=== PATIENT | female | born 1950 | race Two or more races ===

== ENCOUNTER 2019-08-26 17:55 | Inpatient (IN) | payer MEDICAID, OTHER ==
[~2019-08-26] VITALS: Ht 152.4 cm; Wt 57.4 kg
[2019-08-26] MEDS ORDERED: InsuLIN REG 1unit/0.01ml Soln (100units/ml) SC ONE (19:30)
[2019-08-26] MEDS ORDERED: SODIUM CHLORIDE 0.9% 500 ML IV ONE (19:30)
[2019-08-26 19:32] LABS: INR 1.23 (0.9-1.15); Partial Thromboplastin Time 29.6 sec (23.64-32.05)
[2019-08-26 19:39] LABS: Alanine Aminotransferase 17 U/L (13-56); Albumin 3.2 g/dL (3.4-5.0); Anion Gap 9 (5-15); Aspartate Aminotransferase 23 U/L (15-37); BUN/Creatinine Ratio 9.2; Blood Urea Nitrogen 68 mg/dL (7-18); Calcium 8.5 mg/dL (8.5-10.1); Carbon Dioxide 29 mmol/L (21-32); Chloride 97 mmol/L (98-107); GFR African American 7 mL/min; GFR Non-African American 6 mL/min; Glucose 100 mg/dL (74-106); Magnesium 2.2 mg/dL (1.6-2.6); Potassium 5.4 mmol/L (3.5-5.1); Sodium 135 mmol/L (136-145)
[2019-08-26 19:43] LABS: Alkaline Phosphatase 50 U/L (45-117); Bilirubin, Total 0.7 mg/dL (0.2-1.0); Total Protein 7.5 g/dL (6.4-8.2)
[2019-08-26 19:48] LABS: Basophils # (auto) 0 10 ^3/uL (0-0.2); Basophils % (auto) 0.9 % (0.0-2.0); Eosinophils # (auto) 0.2 10 ^3/uL (0-0.8); Eosinophils % (auto) 3.1 % (0.0-7.0); Hematocrit 31.1 % (36.0-46.0); Hemoglobin 10.1 g/dL (12.2-16.2); Lymphocytes % (auto) 20.6 % (10.0-50.0); Mean Corpuscular Hemoglobin 29.4 pg (28.0-32.0); Mean Corpuscular Hgb Conc. 32.4 g/dL (32.0-36.0); Mean Corpuscular Volume 90.7 fL (80.0-100.0); Monocytes # (auto) 0.4 10 ^3/uL (0-1.3); Monocytes % (auto) 8.3 % (0.0-12.0); Neutrophils # (auto) 3.3 10 ^3/uL (1.6-8.6); Neutrophils % (auto) 67.1 % (37.0-80.0); Platelet Count (auto) 141 10^3/uL (140-450); Red Blood Cells 3.43 10^6/uL (4.0-5.20); Red Cell Distribution Width 14.5 % (11.8-14.3); White Blood Cell 4.9 10^3/uL (4.4-10.8)
[2019-08-26] MEDS ORDERED: VANCOMYCIN 1GM/250ML 250 ML IV ONE (20:30)
[2019-08-26] MEDS ORDERED: levoFLOXacin 250MG 50 ML IV ONE (20:30)
[2019-08-26] MEDS ORDERED: NITROGLYCERIN 0.4 MG SL TAB SL PRN ×2 (20:45→21:00)
[2019-08-26] MEDS ORDERED: VANCOMYCIN PER PHARMACY 0 MG IV SCH (20:45)
[2019-08-26] MEDS ORDERED: MORPHINE SULF INJ 2 MG/ML SYRINGE 1ML IV PRN ×3 (20:45→21:00)
[2019-08-26] MEDS ORDERED: DEXTROSE (50%) 50ML SYRG IV PRN (21:00)
[2019-08-26] MEDS ORDERED: METOCLOPRAMIDE HCL 5MG/ml INJ 2ml VIAL IV PRN (21:00)
[2019-08-26] MEDS ORDERED: DOCUSATE SOD 100 MG CAP PO PRN (21:00)
[2019-08-26] MEDS ORDERED: LORazepam 0.5 MG TAB PO PRN (21:00)
[2019-08-26] MEDS ORDERED: ALUM & MAG HYDROX-SIMETH LIQ(MAALOX) 30 ML PO PRN (21:00)
[2019-08-26] MEDS ORDERED: HYDROcodone-ACET 5/325MG TAB ONE (21:08)
[2019-08-26] MEDS ORDERED: InsuLIN REG 1unit/0.01ml Soln (100units/ml) IV ONE (21:15)
[2019-08-26] MEDS ORDERED: DEXTROSE (50%) 50ML SYRG IV ONE (21:15)
[2019-08-26] MEDS ORDERED: CALCIUM GLUC 4.65meq/50ml D5AE 50 ML IV ONE (21:15)
[2019-08-26] MEDS ORDERED: ALBUTEROL SULF 2.5 MG/0.5ML(0.5%) NEB SOLN NEB ONE (21:15)
[2019-08-26] MEDS ORDERED: SODIUM BICARBONATE 8.4% INJ 50ML SYRINGE IV ONE (21:15)
[2019-08-26] MEDS ORDERED: FUROSEMIDE 20 MG/2 ML VIAL IV ONE (21:15)
[2019-08-26] MEDS ORDERED: SODIUM ZIRCONIUM CYCL 10 GM PAK PO ONE (21:30)
[2019-08-26] MEDS: InsuLIN REG 1unit/0.01ml Soln (100units/ml) SC SCH (22:00)
[2019-08-26] MEDS ORDERED: CARVEDILOL 12.5 MG TAB PO SCH (22:00)
[2019-08-26] MEDS: hydrALAZINE HCL 25 MG TAB PO SCH (23:34)
[2019-08-26] MEDS: ATORVASTATIN 20 MG TAB PO SCH (23:38)
[2019-08-26] MEDS: HEPARIN SODIUM (PORCINE) 5000 UNITS/ML 1ML VIAL SC SCH (23:39)
[2019-08-26] MEDS: ACCU-CHEK COMFORT CURVE STRIP VI SCH (23:42)
[2019-08-27] MEDS ORDERED: SEVE800T8 PO (04:07)
[2019-08-27] MEDS ORDERED: DOXY100C2 PO (04:07)
[2019-08-27] MEDS ORDERED: FENO145T27 PO (04:07)
[2019-08-27] MEDS ORDERED: CARV3.1240 PO (04:07)
[2019-08-27] MEDS ORDERED: B-CO-6 OR (04:07)
[2019-08-27] MEDS ORDERED: AMLO5TAB15 PO (04:07)
[2019-08-27 05:09] VITALS: BP 102/54
[2019-08-27] MEDS: hydrALAZINE HCL 25 MG TAB PO SCH ×4 (06:00→21:57)
[2019-08-27 06:07] LABS: Basophils # (auto) 0 10 ^3/uL (0-0.2); Basophils % (auto) 0.7 % (0.0-2.0); Eosinophils # (auto) 0.1 10 ^3/uL (0-0.8); Eosinophils % (auto) 2.6 % (0.0-7.0); Lymphocytes # (auto) 0.8 10 ^3/uL (0.4-5.4); Lymphocytes % (auto) 21.1 % (10.0-50.0); Mean Corpuscular Hemoglobin 29.9 pg (28.0-32.0); Mean Corpuscular Hgb Conc. 33.2 g/dL (32.0-36.0); Mean Corpuscular Volume 90.2 fL (80.0-100.0); Monocytes # (auto) 0.2 10 ^3/uL (0-1.3); Monocytes % (auto) 6.4 % (0.0-12.0); Neutrophils # (auto) 2.6 10 ^3/uL (1.6-8.6); Neutrophils % (auto) 69.2 % (37.0-80.0); Platelet Count (auto) 124 10^3/uL (140-450); Red Blood Cells 3.33 10^6/uL (4.0-5.20); Red Cell Distribution Width 13.9 % (11.8-14.3); White Blood Cell 3.7 10^3/uL (4.4-10.8)
[2019-08-27 06:23] LABS: INR 1.32 (0.9-1.15); Partial Thromboplastin Time 34.4 sec (23.64-32.05)
[2019-08-27 06:29] LABS: Albumin 3.1 g/dL (3.4-5.0); Calcium 8.8 mg/dL (8.5-10.1); Magnesium 2.5 mg/dL (1.6-2.6); Potassium 5.3 mmol/L (3.5-5.1)
[2019-08-27 06:34] LABS: BUN/Creatinine Ratio 9.7; Bilirubin, Total 0.8 mg/dL (0.2-1.0); Phosphorus 6.3 mg/dL (2.5-4.90)
[2019-08-27] MEDS: InsuLIN REG 1unit/0.01ml Soln (100units/ml) SC SCH ×4 (07:00→21:58)
[2019-08-27] MEDS: ACCU-CHEK COMFORT CURVE STRIP VI SCH ×4 (07:09→21:57)
[2019-08-27 08:00] VITALS: BP 142/61
[2019-08-27] MEDS: SEVELAMER 800 MG TAB PO SCH ×3 (08:00→16:56)
[2019-08-27] MEDS ORDERED: SODIUM CHL 0.9% 1000 ML BAG XX ONE (08:30)
[2019-08-27 09:00] VITALS: BP 142/64
[2019-08-27] MEDS: HEPARIN SODIUM (PORCINE) 5000 UNITS/ML 1ML VIAL SC SCH ×2 (10:00→21:59)
[2019-08-27] MEDS ORDERED: CARVEDILOL 12.5 MG TAB PO SCH (10:00)
[2019-08-27] MEDS ORDERED: IOHEXOL 350 MG/ML 100ML IJ ONE (12:17)
[2019-08-27 13:00] VITALS: BP 129/61
[2019-08-27 13:42] LABS: Cholesterol 98 mg/dL (< 200); HDL Cholesterol 20 mg/dL (40-59); LDL Cholesterol 53 mg/dL (< 100); Triglycerides 135 mg/dL (< 150)
[2019-08-27] MEDS ORDERED: OPTISON 3ml Vial for INJ IV ONE (14:58)
[2019-08-27] MEDS ORDERED: VANCOMYCIN 500 MG in D5W 5% 100 ML IV ONE (16:00)
[2019-08-27] MEDS: MEROPENEM 500MG IVPB 50 ML IV SCH (16:56)
[2019-08-27 17:00] VITALS: BP 149/69
[2019-08-27] MEDS ORDERED: EPOETIN ALFA 4,000 UNIT/ML VL SC ONE (21:00)
[2019-08-27] MEDS: ATORVASTATIN 20 MG TAB PO SCH (21:57)
[2019-08-27 22:00] VITALS: BP 147/73
[2019-08-28] MEDS: HYDROcodone-ACET 5/325MG TAB PO PRN (03:13)
[2019-08-28 05:00] VITALS: BP 125/71
[2019-08-28] MEDS: hydrALAZINE HCL 25 MG TAB PO SCH ×3 (06:00→21:59)
[2019-08-28] MEDS: ACCU-CHEK COMFORT CURVE STRIP VI SCH ×4 (06:27→21:59)
[2019-08-28] MEDS: InsuLIN REG 1unit/0.01ml Soln (100units/ml) SC SCH ×4 (06:27→21:59)
[2019-08-28] MEDS: SEVELAMER 800 MG TAB PO SCH ×3 (08:00→18:08)
[2019-08-28 09:00] VITALS: BP 142/68
[2019-08-28] MEDS: MEROPENEM 500MG IVPB 50 ML IV SCH (10:20)
[2019-08-28] MEDS: HEPARIN SODIUM (PORCINE) 5000 UNITS/ML 1ML VIAL SC SCH ×2 (10:21→22:00)
[2019-08-28 13:00] VITALS: BP 151/61
[2019-08-28] MEDS: hydrALAZINE HCL 20 MG/ML VL IV PRN (13:22)
[2019-08-28 17:00] VITALS: BP 123/47
[2019-08-28] MEDS ORDERED: VANCOMYCIN 500 MG in D5W 5% 100 ML IV ONE (17:00)
[2019-08-28] MEDS ORDERED: EPOETIN ALFA 4,000 UNIT/ML VL SC ONE (21:00)
[2019-08-28] MEDS: ATORVASTATIN 20 MG TAB PO SCH (21:59)
[2019-08-28 22:40] VITALS: BP 165/68
[2019-08-29 05:00] VITALS: BP 156/62
[2019-08-29 05:21] LABS: Basophils # (auto) 0 10 ^3/uL (0-0.2); Eosinophils # (auto) 0.1 10 ^3/uL (0-0.8); Eosinophils % (auto) 2.8 % (0.0-7.0); Hematocrit 27.7 % (36.0-46.0); Hemoglobin 9.2 g/dL (12.2-16.2); Lymphocytes # (auto) 0.7 10 ^3/uL (0.4-5.4); Lymphocytes % (auto) 19.7 % (10.0-50.0); Mean Corpuscular Hemoglobin 30.1 pg (28.0-32.0); Mean Corpuscular Hgb Conc. 33.4 g/dL (32.0-36.0); Mean Corpuscular Volume 90.1 fL (80.0-100.0); Monocytes # (auto) 0.3 10 ^3/uL (0-1.3); Neutrophils # (auto) 2.2 10 ^3/uL (1.6-8.6); Neutrophils % (auto) 66.5 % (37.0-80.0); Platelet Count (auto) 104 10^3/uL (140-450); Red Blood Cells 3.08 10^6/uL (4.0-5.20); Red Cell Distribution Width 14.4 % (11.8-14.3); White Blood Cell 3.4 10^3/uL (4.4-10.8)
[2019-08-29 05:32] LABS: INR 1.24 (0.9-1.15)
[2019-08-29 05:34] LABS: BUN/Creatinine Ratio 7.8; Calcium 8.1 mg/dL (8.5-10.1); Potassium 4.5 mmol/L (3.5-5.1)
[2019-08-29] MEDS: ACCU-CHEK COMFORT CURVE STRIP VI SCH ×4 (06:12→21:45)
[2019-08-29] MEDS: InsuLIN REG 1unit/0.01ml Soln (100units/ml) SC SCH ×4 (06:12→21:45)
[2019-08-29] MEDS: hydrALAZINE HCL 25 MG TAB PO SCH ×3 (06:12→21:56)
[2019-08-29] MEDS: SEVELAMER 800 MG TAB PO SCH ×3 (08:20→17:40)
[2019-08-29 09:00] VITALS: BP 146/60
[2019-08-29] MEDS: HEPARIN SODIUM (PORCINE) 5000 UNITS/ML 1ML VIAL SC SCH ×2 (09:18→21:55)
[2019-08-29] MEDS: MEROPENEM 500MG IVPB 50 ML IV SCH (09:20)
[2019-08-29] MEDS: ACETAMINOPHEN 325 MG TAB PO PRN (11:45)
[2019-08-29] MEDS: hydrALAZINE HCL 20 MG/ML VL IV PRN (12:01)
[2019-08-29 13:00] VITALS: BP 157/67
[2019-08-29 17:00] VITALS: BP 145/76
[2019-08-29] MEDS: ATORVASTATIN 20 MG TAB PO SCH (21:56)
[2019-08-29 22:00] VITALS: BP 157/68
[2019-08-30 05:00] VITALS: BP 152/70
[2019-08-30] MEDS: hydrALAZINE HCL 25 MG TAB PO SCH ×3 (06:00→22:14)
[2019-08-30] MEDS: ACCU-CHEK COMFORT CURVE STRIP VI SCH ×2 (06:45→11:42)
[2019-08-30] MEDS: InsuLIN REG 1unit/0.01ml Soln (100units/ml) SC SCH ×4 (06:46→22:16)
[2019-08-30] MEDS ORDERED: SODIUM CHL 0.9% 1000 ML BAG XX ONE (07:00)
[2019-08-30 08:00] VITALS: BP 146/65
[2019-08-30] MEDS: SEVELAMER 800 MG TAB PO SCH ×3 (08:00→18:16)
[2019-08-30 09:00] VITALS: BP 146/65
[2019-08-30] MEDS: HEPARIN SODIUM (PORCINE) 5000 UNITS/ML 1ML VIAL SC SCH (10:00)
[2019-08-30] MEDS: MEROPENEM 500MG IVPB 50 ML IV SCH (10:00)
[2019-08-30 13:00] VITALS: BP 140/86
[2019-08-30 16:51] VITALS: BP 149/62
[2019-08-30 20:57] VITALS: BP 148/66
[2019-08-30] MEDS ORDERED: EPOETIN ALFA 4,000 UNIT/ML VL SC ONE (21:00)
[2019-08-30] MEDS: ATORVASTATIN 20 MG TAB PO SCH (22:14)
[2019-08-31 04:36] VITALS: BP 153/60
[2019-08-31] MEDS: hydrALAZINE HCL 25 MG TAB PO SCH ×3 (06:08→21:32)
[2019-08-31] MEDS: InsuLIN REG 1unit/0.01ml Soln (100units/ml) SC SCH ×4 (06:47→21:34)
[2019-08-31 08:00] VITALS: BP 141/67
[2019-08-31] MEDS: MEROPENEM 500MG IVPB 50 ML IV SCH (09:05)
[2019-08-31] MEDS: SEVELAMER 800 MG TAB PO SCH ×3 (09:05→18:46)
[2019-08-31 09:08] VITALS: BP 141/67
[2019-08-31] MEDS: HEPARIN SODIUM (PORCINE) 5000 UNITS/ML 1ML VIAL SC SCH ×2 (10:00→21:46)
[2019-08-31 13:00] VITALS: BP 158/68
[2019-08-31 16:56] VITALS: BP 152/74
[2019-08-31 21:05] VITALS: BP 155/68
[2019-08-31] MEDS: ATORVASTATIN 20 MG TAB PO SCH (21:32)
[2019-09-01 05:30] VITALS: BP 156/72
[2019-09-01] MEDS: InsuLIN REG 1unit/0.01ml Soln (100units/ml) SC SCH ×3 (06:41→17:00)
[2019-09-01] MEDS: hydrALAZINE HCL 25 MG TAB PO SCH ×3 (06:41→21:12)
[2019-09-01 08:06] VITALS: BP 114/65
[2019-09-01] MEDS: SEVELAMER 800 MG TAB PO SCH ×3 (08:07→17:44)
[2019-09-01 09:00] VITALS: BP 114/65
[2019-09-01] MEDS: MEROPENEM 500MG IVPB 50 ML IV SCH (10:33)
[2019-09-01 13:00] VITALS: BP 161/76
[2019-09-01 17:00] VITALS: BP 157/72
[2019-09-01] MEDS: ATORVASTATIN 20 MG TAB PO SCH (21:13)
[2019-09-01 22:21] VITALS: BP 158/74
[2019-09-02] MEDS: HYDROcodone-ACET 5/325MG TAB PO PRN ×3 (04:56→16:43)
[2019-09-02] MEDS: hydrALAZINE HCL 25 MG TAB PO SCH ×3 (04:56→21:08)
[2019-09-02] MEDS: hydrALAZINE HCL 20 MG/ML VL IV PRN (04:58)
[2019-09-02 05:30] VITALS: BP 159/54
[2019-09-02 05:53] LABS: Basophils # (auto) 0.1 10 ^3/uL (0-0.2); Eosinophils # (auto) 0.2 10 ^3/uL (0-0.8); Eosinophils % (auto) 3.2 % (0.0-7.0); Hematocrit 34.1 % (36.0-46.0); Hemoglobin 11.5 g/dL (12.2-16.2); Lymphocytes # (auto) 1.7 10 ^3/uL (0.4-5.4); Lymphocytes % (auto) 30.2 % (10.0-50.0); Mean Corpuscular Hemoglobin 29.9 pg (28.0-32.0); Mean Corpuscular Hgb Conc. 33.6 g/dL (32.0-36.0); Mean Corpuscular Volume 88.9 fL (80.0-100.0); Monocytes # (auto) 0.7 10 ^3/uL (0-1.3); Monocytes % (auto) 12.7 % (0.0-12.0); Neutrophils % (auto) 52.9 % (37.0-80.0); Nucleated Red Blood Cells % 0.1 %; Platelet Count (auto) 158 10^3/uL (140-450); Red Blood Cells 3.84 10^6/uL (4.0-5.20); Red Cell Distribution Width 13.7 % (11.8-14.3); White Blood Cell 5.6 10^3/uL (4.4-10.8)
[2019-09-02 06:10] LABS: INR 1.14 (0.9-1.15); Partial Thromboplastin Time 32.7 sec (23.64-32.05)
[2019-09-02 06:24] LABS: BUN/Creatinine Ratio 8.1; Calcium 8.7 mg/dL (8.5-10.1)
[2019-09-02] MEDS ORDERED: SODIUM CHL 0.9% 1000 ML BAG XX ONE (07:00)
[2019-09-02] MEDS: SEVELAMER 800 MG TAB PO SCH ×3 (08:00→18:38)
[2019-09-02] MEDS ORDERED: LIDOCAINE 2%HCL (LOCAL ANESTH.) INJ 20ML MDV ONE (08:19)
[2019-09-02] MEDS ORDERED: IOHEXOL 350 MG/ML 100ML IJ ONE (08:20)
[2019-09-02] MEDS ORDERED: MIDAZOLAM HCL 1MG/1ML-2 ML VIAL ONE (08:27)
[2019-09-02] MEDS ORDERED: ANGIOMAX 250 MG VIAL IV ONE (08:27)
[2019-09-02] MEDS ORDERED: fentaNYL CITRATE 100 MCG/2 ML VL ONE (08:27)
[2019-09-02] MEDS ORDERED: SODIUM CHL 0.9% 50 ML ONE (08:27)
[2019-09-02] MEDS ORDERED: IODIXANOL 320MG/ML 100ML BTL IV ONE ×2 (08:47→09:29)
[2019-09-02 12:05] VITALS: BP 154/65
[2019-09-02] MEDS: MEROPENEM 500MG IVPB 50 ML IV SCH (12:17)
[2019-09-02 13:00] VITALS: BP 115/70
[2019-09-02] MEDS ORDERED: CLOPIDOGREL BISULFATE 75 MG TAB PO ONE (16:00)
[2019-09-02 17:00] VITALS: BP 118/58
[2019-09-02] MEDS ORDERED: EPOETIN ALFA 4,000 UNIT/ML VL SC ONE (21:00)
[2019-09-02] MEDS: ATORVASTATIN 20 MG TAB PO SCH (21:08)
[2019-09-02 22:00] VITALS: BP 154/61
[2019-09-03] MEDS: HYDROcodone-ACET 5/325MG TAB PO PRN ×2 (00:44→04:48)
[2019-09-03 05:00] VITALS: BP 117/54
[2019-09-03] MEDS: hydrALAZINE HCL 25 MG TAB PO SCH ×3 (06:16→22:04)
[2019-09-03 06:23] LABS: Basophils # (auto) 0 10 ^3/uL (0-0.2); Basophils % (auto) 0.8 % (0.0-2.0); Eosinophils # (auto) 0.1 10 ^3/uL (0-0.8); Eosinophils % (auto) 2.2 % (0.0-7.0); Hematocrit 29.5 % (36.0-46.0); Hemoglobin 10.1 g/dL (12.2-16.2); Lymphocytes # (auto) 0.8 10 ^3/uL (0.4-5.4); Lymphocytes % (auto) 17.2 % (10.0-50.0); Mean Corpuscular Hemoglobin 30.3 pg (28.0-32.0); Mean Corpuscular Hgb Conc. 34.2 g/dL (32.0-36.0); Mean Corpuscular Volume 88.5 fL (80.0-100.0); Monocytes # (auto) 0.7 10 ^3/uL (0-1.3); Monocytes % (auto) 14.7 % (0.0-12.0); Neutrophils # (auto) 3.1 10 ^3/uL (1.6-8.6); Neutrophils % (auto) 65.1 % (37.0-80.0); Platelet Count (auto) 143 10^3/uL (140-450); Red Blood Cells 3.33 10^6/uL (4.0-5.20); Red Cell Distribution Width 13.9 % (11.8-14.3); White Blood Cell 4.7 10^3/uL (4.4-10.8)
[2019-09-03 06:39] LABS: Potassium 4.4 mmol/L (3.5-5.1)
[2019-09-03 06:56] LABS: BUN/Creatinine Ratio 5.5; Calcium 8.1 mg/dL (8.5-10.1)
[2019-09-03 08:00] VITALS: BP 134/58
[2019-09-03] MEDS: SEVELAMER 800 MG TAB PO SCH ×3 (08:53→18:17)
[2019-09-03 09:00] VITALS: BP 134/58
[2019-09-03] MEDS: MEROPENEM 500MG IVPB 50 ML IV SCH (09:06)
[2019-09-03] MEDS: ISOSORBIDE MONONITRATE ER 60 MG TAB PO SCH (09:08)
[2019-09-03] MEDS: CLOPIDOGREL BISULFATE 75 MG TAB PO SCH (09:08)
[2019-09-03 13:00] VITALS: BP 127/61
[2019-09-03 16:52] VITALS: BP 117/54
[2019-09-03 21:52] VITALS: BP 154/72
[2019-09-03] MEDS: ATORVASTATIN 20 MG TAB PO SCH (22:04)
[2019-09-04] VITALS (7 sets, daily range): BP systolic 124–169; BP diastolic 59–77
[2019-09-04] MEDS: hydrALAZINE HCL 20 MG/ML VL IV PRN (04:12)
[2019-09-04] MEDS: hydrALAZINE HCL 25 MG TAB PO SCH ×3 (05:38→21:27)
[2019-09-04] MEDS ORDERED: SODIUM CHL 0.9% 1000 ML BAG XX ONE (07:00)
[2019-09-04] MEDS: ISOSORBIDE MONONITRATE ER 60 MG TAB PO SCH (10:00)
[2019-09-04] MEDS: MEROPENEM 500MG IVPB 50 ML IV SCH (10:21)
[2019-09-04] MEDS: SEVELAMER 800 MG TAB PO SCH ×3 (10:21→18:29)
[2019-09-04] MEDS: CLOPIDOGREL BISULFATE 75 MG TAB PO SCH (10:22)
[2019-09-04] MEDS ORDERED: VANCOMYCIN 1GM/250ML 250 ML IV ONE (16:00)
[2019-09-04] MEDS ORDERED: EPOETIN ALFA 10,000 UNIT/1 ML VIAL SC ONE (21:00)
[2019-09-04] MEDS: ATORVASTATIN 20 MG TAB PO SCH (21:07)
[2019-09-05 04:42] VITALS: BP 160/70
[2019-09-05] MEDS: hydrALAZINE HCL 25 MG TAB PO SCH ×3 (05:50→22:07)
[2019-09-05] MEDS: hydrALAZINE HCL 20 MG/ML VL IV PRN (06:58)
[2019-09-05 08:00] VITALS: BP 148/78
[2019-09-05] MEDS: SEVELAMER 800 MG TAB PO SCH ×3 (08:32→17:54)
[2019-09-05 09:00] VITALS: BP 148/78
[2019-09-05] MEDS: MEROPENEM 500MG IVPB 50 ML IV SCH (09:38)
[2019-09-05] MEDS: ENOXAPARIN SOD 30 MG/0.3 ML SYRINGE SC SCH (09:38)
[2019-09-05] MEDS: CLOPIDOGREL BISULFATE 75 MG TAB PO SCH (09:39)
[2019-09-05] MEDS: ISOSORBIDE MONONITRATE ER 60 MG TAB PO SCH (09:40)
[2019-09-05 13:00] VITALS: BP 138/56
[2019-09-05 15:02] LABS: Hematocrit 29.2 % (36.0-46.0); Hemoglobin 9.9 g/dL (12.2-16.2)
[2019-09-05 16:33] VITALS: BP 128/58
[2019-09-05] MEDS: ATORVASTATIN 20 MG TAB PO SCH (22:06)
[2019-09-05 22:49] VITALS: BP 134/64
[2019-09-06 05:24] VITALS: BP 164/68
[2019-09-06] MEDS: hydrALAZINE HCL 25 MG TAB PO SCH ×3 (06:00→21:47)
[2019-09-06 06:12] LABS: Basophils # (auto) 0 10 ^3/uL (0-0.2); Basophils % (auto) 0.8 % (0.0-2.0); Eosinophils # (auto) 0.2 10 ^3/uL (0-0.8); Eosinophils % (auto) 3.2 % (0.0-7.0); Hematocrit 27.4 % (36.0-46.0); Hemoglobin 9.4 g/dL (12.2-16.2); Lymphocytes # (auto) 1.2 10 ^3/uL (0.4-5.4); Lymphocytes % (auto) 22.6 % (10.0-50.0); Mean Corpuscular Hemoglobin 30.2 pg (28.0-32.0); Mean Corpuscular Hgb Conc. 34.3 g/dL (32.0-36.0); Mean Corpuscular Volume 88.1 fL (80.0-100.0); Monocytes # (auto) 0.7 10 ^3/uL (0-1.3); Monocytes % (auto) 13.1 % (0.0-12.0); Neutrophils # (auto) 3.1 10 ^3/uL (1.6-8.6); Neutrophils % (auto) 60.3 % (37.0-80.0); Nucleated Red Blood Cells % 0.1 %; Platelet Count (auto) 157 10^3/uL (140-450); Red Blood Cells 3.11 10^6/uL (4.0-5.20); Red Cell Distribution Width 13.9 % (11.8-14.3); White Blood Cell 5.1 10^3/uL (4.4-10.8)
[2019-09-06 06:22] LABS: BUN/Creatinine Ratio 4.5; Calcium 7.9 mg/dL (8.5-10.1); Potassium 5.1 mmol/L (3.5-5.1)
[2019-09-06 06:59] LABS: INR 1.16 (0.9-1.15); Partial Thromboplastin Time 34.1 sec (23.64-32.05)
[2019-09-06] MEDS ORDERED: SODIUM CHL 0.9% 1000 ML BAG XX ONE (07:00)
[2019-09-06] MEDS: SEVELAMER 800 MG TAB PO SCH ×3 (07:44→17:43)
[2019-09-06 09:00] VITALS: BP 119/64
[2019-09-06] MEDS: CLOPIDOGREL BISULFATE 75 MG TAB PO SCH (10:00)
[2019-09-06] MEDS: ENOXAPARIN SOD 30 MG/0.3 ML SYRINGE SC SCH (10:00)
[2019-09-06 10:02] LABS: Hematocrit 29.2 % (36.0-46.0)
[2019-09-06] MEDS: MEROPENEM 500MG IVPB 50 ML IV SCH (10:54)
[2019-09-06] MEDS: ISOSORBIDE MONONITRATE ER 60 MG TAB PO SCH (10:57)
[2019-09-06 11:13] LABS: Calcium 7.7 mg/dL (8.5-10.1); Potassium 3.6 mmol/L (3.5-5.1)
[2019-09-06] MEDS ORDERED: BUPIVACAINE HCL 50 ML ONE (11:36)
[2019-09-06] MEDS ORDERED: MIDAZOLAM HCL 1MG/1ML-2 ML VIAL ONE ×3 (12:09→14:22)
[2019-09-06] MEDS ORDERED: LIDOCAINE 2% (LOCAL ANESTH.) PF 5ml SDV ONE (12:13)
[2019-09-06] MEDS ORDERED: PROPOFOL 10 MG/ML 20 ML IV ONE (12:13)
[2019-09-06] MEDS ORDERED: BUPIVACAINE 0.5% INJ 50ML VIAL IJ ONE (12:15)
[2019-09-06] MEDS ORDERED: METOCLOPRAMIDE HCL 5MG/ml INJ 2ml VIAL ONE (12:16)
[2019-09-06] MEDS ORDERED: diphenhdrAMINE HCL 50 MG/1 ML VL ONE (12:17)
[2019-09-06] MEDS ORDERED: fentaNYL CITRATE 100 MCG/2 ML VL ONE (12:19)
[2019-09-06] MEDS ORDERED: PHENYLEPHRINE HCL 10 MG/ML VL ONE (12:25)
[2019-09-06] MEDS ORDERED: ePHEDrine SULFATE 50 MG/ML AMP ONE (12:27)
[2019-09-06] MEDS ORDERED: SODIUM CHLORIDE LOCK 20 ML ONE (12:27)
[2019-09-06] MEDS ORDERED: ACCU-CHEK COMFORT CURVE STRIP VI ONE (13:45)
[2019-09-06] MEDS ORDERED: NALOXONE HCL 0.4 MG/ML VIAL IV PRN (13:45)
[2019-09-06] MEDS ORDERED: ONDANSETRON HCL 4 MG/2 ML VIAL IV PRN (13:45)
[2019-09-06] MEDS ORDERED: ePHEDrine SULFATE 50 MG/ML AMP IV PRN (13:45)
[2019-09-06] MEDS ORDERED: HYDROmorphone HCL 2 MG/ML VL IV PRN (13:45)
[2019-09-06 15:41] LABS: Hematocrit 29.5 % (36.0-46.0)
[2019-09-06] MEDS ORDERED: VANCOMYCIN 500 MG in D5W 5% 100 ML IV ONE (16:00)
[2019-09-06] MEDS: MORPHINE SULF INJ 2 MG/ML SYRINGE 1ML IV PRN ×2 (16:42→23:41)
[2019-09-06 17:00] VITALS: BP 106/60
[2019-09-06] MEDS ORDERED: EPOETIN ALFA 4,000 UNIT/ML VL SC ONE (21:00)
[2019-09-06] MEDS: HYDROcodone-ACET 5/325MG TAB PO PRN (21:46)
[2019-09-06] MEDS: ATORVASTATIN 20 MG TAB PO SCH (21:47)
[2019-09-06 22:00] VITALS: BP 122/65
[2019-09-07 05:00] VITALS: BP 139/72
[2019-09-07] MEDS: hydrALAZINE HCL 25 MG TAB PO SCH ×3 (06:55→21:21)
[2019-09-07] MEDS: MORPHINE SULF INJ 2 MG/ML SYRINGE 1ML IV PRN ×9 (06:56→19:56)
[2019-09-07] MEDS: SEVELAMER 800 MG TAB PO SCH ×3 (07:52→17:57)
[2019-09-07 08:57] LABS: Hemoglobin 10.2 g/dL (12.2-16.2)
[2019-09-07 09:00] VITALS: BP 151/75
[2019-09-07] MEDS: MEROPENEM 500MG IVPB 50 ML IV SCH (09:54)
[2019-09-07] MEDS: ISOSORBIDE MONONITRATE ER 60 MG TAB PO SCH (09:55)
[2019-09-07] MEDS: ENOXAPARIN SOD 30 MG/0.3 ML SYRINGE SC SCH (10:00)
[2019-09-07] MEDS: CLOPIDOGREL BISULFATE 75 MG TAB PO SCH (10:00)
[2019-09-07 17:00] VITALS: BP_SYST 141; BP_SYST 148; BP_DIAS 64; BP_DIAS 77
[2019-09-07 20:36] VITALS: BP 147/76
[2019-09-07] MEDS: ACETAMINOPHEN 325 MG TAB PO PRN (20:59)
[2019-09-07] MEDS ORDERED: HYDROcodone-ACET 7.5/325MG TAB PO PRN (21:15)
[2019-09-07] MEDS: ATORVASTATIN 20 MG TAB PO SCH (21:21)
[2019-09-08] MEDS: ACETAMINOPHEN 325 MG TAB PO PRN (00:36)
[2019-09-08] MEDS: MORPHINE SULF INJ 2 MG/ML SYRINGE 1ML IV PRN ×4 (01:07→17:38)
[2019-09-08 03:45] VITALS: BP 149/74
[2019-09-08] MEDS: HYDROcodone-ACET 7.5/325MG TAB PO PRN ×3 (04:17→20:27)
[2019-09-08] MEDS: hydrALAZINE HCL 25 MG TAB PO SCH ×3 (05:26→21:57)
[2019-09-08 06:06] LABS: Basophils # (auto) 0.1 10 ^3/uL (0-0.2); Basophils % (auto) 0.7 % (0.0-2.0); Eosinophils # (auto) 0.1 10 ^3/uL (0-0.8); Eosinophils % (auto) 1.6 % (0.0-7.0); Hematocrit 29.1 % (36.0-46.0); Hemoglobin 9.8 g/dL (12.2-16.2); Lymphocytes # (auto) 0.9 10 ^3/uL (0.4-5.4); Lymphocytes % (auto) 10.7 % (10.0-50.0); Mean Corpuscular Hemoglobin 30.3 pg (28.0-32.0); Mean Corpuscular Hgb Conc. 33.7 g/dL (32.0-36.0); Mean Corpuscular Volume 90.1 fL (80.0-100.0); Monocytes # (auto) 1.1 10 ^3/uL (0-1.3); Neutrophils # (auto) 6.2 10 ^3/uL (1.6-8.6); Platelet Count (auto) 163 10^3/uL (140-450); Red Blood Cells 3.23 10^6/uL (4.0-5.20); Red Cell Distribution Width 13.8 % (11.8-14.3); White Blood Cell 8.3 10^3/uL (4.4-10.8)
[2019-09-08 06:23] LABS: BUN/Creatinine Ratio 4.7; Calcium 8.5 mg/dL (8.5-10.1)
[2019-09-08 06:48] LABS: Potassium 5.8 mmol/L (3.5-5.1)
[2019-09-08] MEDS ORDERED: SODIUM ZIRCONIUM CYCL 10 GM PAK PO ONE ×2 (07:30→18:30)
[2019-09-08] MEDS ORDERED: InsuLIN REG 1unit/0.01ml Soln (100units/ml) IV ONE ×2 (07:30→18:45)
[2019-09-08] MEDS ORDERED: DEXTROSE (50%) 50ML SYRG IV ONE ×2 (07:30→18:45)
[2019-09-08] MEDS ORDERED: CALCIUM GLUC 4.65meq/50ml D5AE 50 ML IV ONE ×2 (07:30→18:30)
[2019-09-08] MEDS: SEVELAMER 800 MG TAB PO SCH ×3 (08:25→17:37)
[2019-09-08 09:00] VITALS: BP 175/78
[2019-09-08] MEDS: MEROPENEM 500MG IVPB 50 ML IV SCH (09:33)
[2019-09-08] MEDS: CLOPIDOGREL BISULFATE 75 MG TAB PO SCH (09:33)
[2019-09-08] MEDS: ENOXAPARIN SOD 30 MG/0.3 ML SYRINGE SC SCH (09:34)
[2019-09-08] MEDS: ISOSORBIDE MONONITRATE ER 60 MG TAB PO SCH (09:34)
[2019-09-08] MEDS: hydrALAZINE HCL 20 MG/ML VL IV PRN (09:34)
[2019-09-08 12:58] VITALS: BP 135/69
[2019-09-08] MEDS: ONDANSETRON HCL 4 MG/2 ML VIAL IV PRN (13:44)
[2019-09-08 17:00] VITALS: BP 150/72
[2019-09-08 18:13] LABS: BUN/Creatinine Ratio 4.7; Calcium 8.8 mg/dL (8.5-10.1)
[2019-09-08 18:19] LABS: Potassium 6.1 mmol/L (3.5-5.1)
[2019-09-08] MEDS ORDERED: SODIUM BICARBONATE 8.4 % INJ 50ML VIAL IV ONE (18:30)
[2019-09-08] MEDS ORDERED: ALBUTEROL SULF 2.5 MG/0.5ML(0.5%) NEB SOLN NEB ONE (18:30)
[2019-09-08] MEDS ORDERED: InsuLIN REG 1unit/0.01ml Soln (100units/ml) SC ONE (18:30)
[2019-09-08 20:00] VITALS: BP 148/68
[2019-09-08 21:32] VITALS: BP 148/68
[2019-09-08] MEDS: ATORVASTATIN 20 MG TAB PO SCH (21:56)
[2019-09-09] MEDS ORDERED: SODIUM ZIRCONIUM CYCL 10 GM PAK PO ONE ×2 (01:15→12:45)
[2019-09-09] MEDS: MORPHINE SULF INJ 2 MG/ML SYRINGE 1ML IV PRN ×3 (02:22→13:40)
[2019-09-09 05:06] VITALS: BP 148/73
[2019-09-09] MEDS: ACETAMINOPHEN 325 MG TAB PO PRN (05:27)
[2019-09-09] MEDS: hydrALAZINE HCL 25 MG TAB PO SCH ×3 (05:35→22:14)
[2019-09-09] MEDS ORDERED: SODIUM CHL 0.9% 1000 ML BAG XX ONE (07:00)
[2019-09-09] MEDS: SEVELAMER 800 MG TAB PO SCH ×3 (08:40→16:55)
[2019-09-09 09:00] VITALS: BP 160/72
[2019-09-09 09:39] LABS: Basophils # (auto) 0.1 10 ^3/uL (0-0.2); Basophils % (auto) 0.9 % (0.0-2.0); Eosinophils # (auto) 0.1 10 ^3/uL (0-0.8); Eosinophils % (auto) 1.1 % (0.0-7.0); Hematocrit 25.6 % (36.0-46.0); Hemoglobin 8.6 g/dL (12.2-16.2); Lymphocytes # (auto) 0.6 10 ^3/uL (0.4-5.4); Lymphocytes % (auto) 7.1 % (10.0-50.0); Mean Corpuscular Hemoglobin 30.2 pg (28.0-32.0); Mean Corpuscular Hgb Conc. 33.7 g/dL (32.0-36.0); Mean Corpuscular Volume 89.4 fL (80.0-100.0); Monocytes # (auto) 0.9 10 ^3/uL (0-1.3); Monocytes % (auto) 10.2 % (0.0-12.0); Neutrophils % (auto) 80.7 % (37.0-80.0); Platelet Count (auto) 160 10^3/uL (140-450); Red Blood Cells 2.86 10^6/uL (4.0-5.20); White Blood Cell 8.6 10^3/uL (4.4-10.8)
[2019-09-09 09:57] LABS: Calcium 8.3 mg/dL (8.5-10.1); Potassium 5.4 mmol/L (3.5-5.1)
[2019-09-09] MEDS: MEROPENEM 500MG IVPB 50 ML IV SCH (10:00)
[2019-09-09] MEDS: ENOXAPARIN SOD 30 MG/0.3 ML SYRINGE SC SCH (10:00)
[2019-09-09] MEDS: ISOSORBIDE MONONITRATE ER 60 MG TAB PO SCH (10:00)
[2019-09-09] MEDS: CLOPIDOGREL BISULFATE 75 MG TAB PO SCH (10:00)
[2019-09-09 13:00] VITALS: BP 141/74
[2019-09-09 16:54] VITALS: BP 145/66
[2019-09-09] MEDS ORDERED: VANCOMYCIN 500 MG in D5W 5% 100 ML IV ONE (17:00)
[2019-09-09] MEDS: ONDANSETRON HCL 4 MG/2 ML VIAL IV PRN (20:50)
[2019-09-09] MEDS: oxyCODONE HCL 5MG TAB PO PRN (20:51)
[2019-09-09] MEDS: ATORVASTATIN 20 MG TAB PO SCH (22:15)
[2019-09-09 22:35] VITALS: BP 131/62
[2019-09-10] MEDS: oxyCODONE HCL 5MG TAB PO PRN ×3 (02:22→17:44)
[2019-09-10 05:22] VITALS: BP 134/60
[2019-09-10] MEDS: hydrALAZINE HCL 25 MG TAB PO SCH ×2 (05:58→14:00)
[2019-09-10 06:41] LABS: Basophils # (auto) 0 10 ^3/uL (0-0.2); Basophils % (auto) 0.4 % (0.0-2.0); Eosinophils # (auto) 0 10 ^3/uL (0-0.8); Eosinophils % (auto) 0.6 % (0.0-7.0); Hematocrit 25.6 % (36.0-46.0); Hemoglobin 8.6 g/dL (12.2-16.2); Lymphocytes # (auto) 0.7 10 ^3/uL (0.4-5.4); Lymphocytes % (auto) 8.6 % (10.0-50.0); Mean Corpuscular Hgb Conc. 33.6 g/dL (32.0-36.0); Mean Corpuscular Volume 89.2 fL (80.0-100.0); Monocytes # (auto) 1.1 10 ^3/uL (0-1.3); Monocytes % (auto) 13.4 % (0.0-12.0); Neutrophils # (auto) 6.2 10 ^3/uL (1.6-8.6); Platelet Count (auto) 173 10^3/uL (140-450); Red Blood Cells 2.87 10^6/uL (4.0-5.20); Red Cell Distribution Width 13.9 % (11.8-14.3)
[2019-09-10 06:54] LABS: BUN/Creatinine Ratio 4.5; Potassium 3.7 mmol/L (3.5-5.1)
[2019-09-10 08:50] VITALS: BP 146/62
[2019-09-10] MEDS: ENOXAPARIN SOD 30 MG/0.3 ML SYRINGE SC SCH (09:18)
[2019-09-10] MEDS: MEROPENEM 500MG IVPB 50 ML IV SCH (09:18)
[2019-09-10] MEDS: CLOPIDOGREL BISULFATE 75 MG TAB PO SCH (09:19)
[2019-09-10] MEDS: ISOSORBIDE MONONITRATE ER 60 MG TAB PO SCH (09:19)
[2019-09-10] MEDS: SEVELAMER 800 MG TAB PO SCH ×3 (09:19→17:44)
[2019-09-10 12:39] VITALS: BP 127/55
[2019-09-10 16:41] VITALS: BP 143/68
== END 2019-09-10 20:09 | disposition home health service (06) | DRG 181 ==
LOC: ER 17:55 → TELE 17:56 → TELE-CENTR 08-27 02:44 → TELE-WESTW 08-27 02:59
PROVIDERS: ADMIT Hospitalist; ATTEND Internal Medicine
PROC: 5A1D70Z Performance of Urinary Filtration, Intermittent, Less than 6 Hours Per Day (ICD-10-PCS; 2019-08-28)
PROC: 5A1D70Z Performance of Urinary Filtration, Intermittent, Less than 6 Hours Per Day (ICD-10-PCS; 2019-08-30)
PROC: 047M3ZZ Dilation of Right Popliteal Artery, Percutaneous Approach (ICD-10-PCS; principal; 2019-09-02)
PROC: B41G1ZZ Fluoroscopy of Left Lower Extremity Arteries using Low Osmolar Contrast (ICD-10-PCS; 2019-09-02)
PROC: B41F1ZZ Fluoroscopy of Right Lower Extremity Arteries using Low Osmolar Contrast (ICD-10-PCS; 2019-09-02)
PROC: 5A1D70Z Performance of Urinary Filtration, Intermittent, Less than 6 Hours Per Day (ICD-10-PCS; 2019-09-02)
PROC: 5A1D70Z Performance of Urinary Filtration, Intermittent, Less than 6 Hours Per Day (ICD-10-PCS; 2019-09-04)
PROC: 0Y6M0Z9 Detachment at Right Foot, Partial 1st Ray, Open Approach (ICD-10-PCS; 2019-09-06)
PROC: 0Y6M0ZB Detachment at Right Foot, Partial 2nd Ray, Open Approach (ICD-10-PCS; 2019-09-06)
PROC: 0Y6M0ZC Detachment at Right Foot, Partial 3rd Ray, Open Approach (ICD-10-PCS; 2019-09-06)
PROC: 0Y6M0ZD Detachment at Right Foot, Partial 4th Ray, Open Approach (ICD-10-PCS; 2019-09-06)
PROC: 5A1D70Z Performance of Urinary Filtration, Intermittent, Less than 6 Hours Per Day (ICD-10-PCS; 2019-09-06)
PROC: 30233N1 Transfusion of Nonautologous Red Blood Cells into Peripheral Vein, Percutaneous Approach (ICD-10-PCS; 2019-09-06)
PROC: 5A1D70Z Performance of Urinary Filtration, Intermittent, Less than 6 Hours Per Day (ICD-10-PCS; 2019-09-09)
DX: E11.52 Type 2 diabetes mellitus with diabetic peripheral angiopathy with gangrene (principal); I96 Gangrene, not elsewhere classified; E44.0 Moderate protein-calorie malnutrition; I82.401 Acute embolism and thrombosis of unspecified deep veins of right lower extremity; D69.6 Thrombocytopenia, unspecified; E11.22 Type 2 diabetes mellitus with diabetic chronic kidney disease; E11.621 Type 2 diabetes mellitus with foot ulcer; I12.0 Hypertensive chronic kidney disease with stage 5 chronic kidney disease or end stage renal disease; E11.622 Type 2 diabetes mellitus with other skin ulcer; E87.1 Hypo-osmolality and hyponatremia; E87.5 Hyperkalemia; N18.6 End stage renal disease; Z99.2 Dependence on renal dialysis; E78.5 Hyperlipidemia, unspecified; N25.81 Secondary hyperparathyroidism of renal origin; R00.1 Bradycardia, unspecified; D72.819 Decreased white blood cell count, unspecified; E11.69 Type 2 diabetes mellitus with other specified complication; Z68.26 Body mass index [BMI] 26.0-26.9, adult; D63.1 Anemia in chronic kidney disease
CPT/HCPCS: 36415; 71045; 73700; 73706; 80048; 80053; 80061; 80202; 82962; 83036; 83605; 83735; 83880; 84100; 84132; 84443; 84484; 85014; 85018; 85025; 85610; 85730; 86850; 86900; 86901; 86920; 87040; 87804; 90935; 93005; 93306; 94640; 99152; 99153; A4565; C1769; G0378; J0610; J0885; J1642; J1815; J2001; J2185; J2250; J2405; J2704; J3490; J7060; Q9956; Q9967; V2790